=== PATIENT | female | born 1960 | race Caucasian/White ===

== ENCOUNTER 2018-05-30 14:50 | Inpatient (IN) | payer MEDICARE, BC, MEDICAID ==
[~2018-05-30] VITALS: Ht 162.6 cm; Wt 93.2 kg
[~2018-05-30 14:50] MED LIST: GABA600T2 PO; MORP30TA60 PO; NIA500ERT PO; OMEP20CA4 PO; PRED5TAB49 PO; TOPI200T PO; TOPI200T16 PO; VENL75TA4 PO; ZOLP10TA PO
[2018-05-30] MEDS ORDERED: oxyCODONE/APAP 5-325mg tablet PO ONE (15:35)
[2018-05-30] MEDS ORDERED: morphine 4 MG/ML inj SYRINge IM ONE (15:35)
[2018-05-30] MEDS ORDERED: normal saline 1000ML IV soln IVB ONE (16:25)
[2018-05-30] MEDS ORDERED: morphine 4 MG/ML inj SYRINge IV ONE (16:25)
[2018-05-30 17:00] LABS: BASOPHILS % (AUTO) 0.1 % (0-1); EOSINOPHILS # (AUTO) 0.2 X10'3 (0-0.9); EOSINOPHILS % (AUTO) 1.4 % (0-6); HEMATOCRIT 35.1 % (35.0-45.0); LYMPHOCYTES # (AUTO) 2.4 X10'3 (1.1-4.8); LYMPHOCYTES % (AUTO) 18.1 % (21-51); MEAN CORPUSCULAR HEMOGLOBIN 24.8 PG (27.0-31.0); MEAN CORPUSCULAR HGB CONC 31.5 % (33.0-36.5); MEAN CORPUSCULAR VOLUME 78.8 FL (78-98); MEAN PLATELET VOLUME 8.2 FL (7.4-10.4); MONOCYTES % (AUTO) 7.5 % (2-12); NEUTROPHILS # (AUTO) 9.6 X10'3 (1.8-7.7); NEUTROPHILS % (AUTO) 72.9 % (42-75); PLATELET COUNT 423 X10'3 (140-440); RED BLOOD COUNT 4.45 X10'6 (4.20-5.60); RED CELL DISTRIBUTION WIDTH 16.8 % (11.5-14.5); WHITE BLOOD COUNT 13.1 X10'3 (4.5-11.0)
[2018-05-30 17:15] LABS: ALANINE AMINOTRANSFERASE 21 U/L (12-78); ALBUMIN 2.8 G/DL (3.4-5.0); ALBUMIN/GLOBULIN RATIO 0.7 (1.1-1.5); ALKALINE PHOSPHATASE 119 IU/L (46-116); ANION GAP 6 (8-16); ASPARTATE AMINO TRANSFERASE 19 U/L (10-37); BILIRUBIN,TOTAL 0.2 MG/DL (0.1-1.0); BLOOD UREA NITROGEN 23 MG/DL (7-18); BUN/CREATININE RATIO 62.2 (6.6-38.0); CALCIUM 8.5 MG/DL (8.5-10.1); CHLORIDE 104 MMOL/L (99-107); CREATININE 0.37 MG/DL (0.40-0.90); GLUCOSE 92 MG/DL (70-104); SODIUM 139 MMOL/L (135-145); TOTAL CARBON DIOXIDE 28.7 MMOL/L (24-32); TOTAL PROTEIN 6.6 G/DL (6.4-8.2); eGFR > 90 ML/MIN
[2018-05-30] MEDS ORDERED: potassium Cl oral solution 20 MEQ/15 ML PO ONE (17:20)
[2018-05-30] MEDS ORDERED: potassium Cl 40MEQ/NS 500ml 500 ML IV PRN ×2 (17:45)
[2018-05-30] MEDS ORDERED: magnesium 1gm/100ml D5W IVPB 100 ML IV PRN (17:45)
[2018-05-30] MEDS ORDERED: HYDROmorphone 1 mg/ml syringe IV PRN (17:45)
[2018-05-30] MEDS ORDERED: magnesium 4gm in 100ml NS 100 ML IV PRN (17:45)
[2018-05-30] MEDS ORDERED: ipratropium/albuterol 3ml nebule NEB PRN (17:45)
[2018-05-30] MEDS ORDERED: potassium Cl 20 mEq SR tablet PO PRN (17:45)
[2018-05-30] MEDS ORDERED: ondansetron/PF 4mg/2ml inj IV PRN (17:45)
[2018-05-30] MEDS ORDERED: acetaminophen 325mg tablet PO PRN (17:45)
[2018-05-30] MEDS ORDERED: magnesium hydroxide 30ml (MOM) UD suspension PO PRN (17:45)
[2018-05-30] MEDS ORDERED: mag hydrox/Alum hydrox/simeth 30ml oral suspension PO PRN (17:45)
[2018-05-30] MEDS ORDERED: HYDR2TAB28 PO (17:54)
[2018-05-30] MEDS ORDERED: zolpidem 5mg tablet PO PRN ×2 (18:55→19:25)
[2018-05-30 19:32] LABS: CLARITY,URINE CLEAR (Clear); GLUCOSE, URINE NEGATIVE (Neg); KETONES,URINE TRACE mg/dl (Neg); LEUKOCYTE ESTERASE ,URINE NEGATIVE (Neg); OCCULT BLOOD,URINE NEGATIVE (Neg); PROTEIN,URINE TRACE mg/dl (Neg)
[2018-05-30 19:33] LABS: UA COLLECTION TYPE STRAIGHT CATH
[2018-05-30 19:40] LABS: COLOR,URINE DARK YELLOW (Yellow)
[2018-05-30 19:42] LABS: NITRITES, URINE NEGATIVE (Neg)
[2018-05-30 19:45] LABS: WBC,URINE NONE SEEN /HPF (0-4)
[2018-05-30 19:46] LABS: BACTERIA,URINE FEW /HPF (Neg); MUCUS STRANDS MANY /LPF (Neg); RBC,URINE 0-2 /HPF (0-2); SQUAMOUS EPITHELIAL CELL,UR NONE SEEN /LPF (FEW)
[2018-05-30 20:15] VITALS: BP 121/77
[2018-05-30] MEDS: morphine ER 30mg tablet PO SCH (20:51)
[2018-05-30] MEDS: gabapentin 300mg capsule PO SCH (20:51)
[2018-05-30] MEDS: niacin 500mg ER (Niaspan) tablet PO SCH (20:51)
[2018-05-30] MEDS: venlafaxine 37.5mg tablet PO SCH (20:52)
[2018-05-30] MEDS: topiramate 100mg tablet PO SCH (21:10)
[2018-05-30] MEDS: HYDROmorphone 1 mg/ml syringe IV PRN (21:11)
[2018-05-30 22:00] VITALS: BP 109/64
[2018-05-31 02:00] VITALS: BP 107/71
[2018-05-31] MEDS: HYDROmorphone 1 mg/ml syringe IV PRN ×5 (02:14→22:41)
[2018-05-31 05:57] LABS: BASOPHILS % (AUTO) 0.4 % (0-1); EOSINOPHILS # (AUTO) 0.3 X10'3 (0-0.9); EOSINOPHILS % (AUTO) 3.4 % (0-6); HEMATOCRIT 31.2 % (35.0-45.0); HEMOGLOBIN 9.7 g/dl (12.0-16.0); LYMPHOCYTES # (AUTO) 2.4 X10'3 (1.1-4.8); LYMPHOCYTES % (AUTO) 27.7 % (21-51); MEAN CORPUSCULAR HEMOGLOBIN 24.8 PG (27.0-31.0); MEAN CORPUSCULAR VOLUME 79.8 FL (78-98); MEAN PLATELET VOLUME 8.4 FL (7.4-10.4); MONOCYTES # (AUTO) 0.7 X10'3 (0-0.9); MONOCYTES % (AUTO) 7.8 % (2-12); NEUTROPHILS # (AUTO) 5.2 X10'3 (1.8-7.7); NEUTROPHILS % (AUTO) 60.7 % (42-75); PLATELET COUNT 381 X10'3 (140-440); RED BLOOD COUNT 3.91 X10'6 (4.20-5.60); RED CELL DISTRIBUTION WIDTH 17.1 % (11.5-14.5); WHITE BLOOD COUNT 8.6 X10'3 (4.5-11.0)
[2018-05-31 06:00] VITALS: BP 108/68
[2018-05-31 06:05] LABS: PROTHROMBIN TIME 10.3 SECONDS (9.0-12.0)
[2018-05-31 06:16] LABS: ALANINE AMINOTRANSFERASE 19 U/L (12-78); ALBUMIN 2.4 G/DL (3.4-5.0); ALBUMIN/GLOBULIN RATIO 0.7 (1.1-1.5); ALKALINE PHOSPHATASE 106 IU/L (46-116); ANION GAP 7 (8-16); ASPARTATE AMINO TRANSFERASE 19 U/L (10-37); BILIRUBIN,TOTAL 0.3 MG/DL (0.1-1.0); BLOOD UREA NITROGEN 15 MG/DL (7-18); BUN/CREATININE RATIO 71.4 (6.6-38.0); CALCIUM 8.2 MG/DL (8.5-10.1); CHLORIDE 105 MMOL/L (99-107); CREATININE 0.21 MG/DL (0.40-0.90); GLUCOSE 83 MG/DL (70-104); MAGNESIUM 2.1 MG/DL (1.5-2.4); POTASSIUM 3.3 MMOL/L (3.5-5.1); SODIUM 140 MMOL/L (135-145); TOTAL CARBON DIOXIDE 27.6 MMOL/L (24-32); TOTAL PROTEIN 5.9 G/DL (6.4-8.2); eGFR > 90 ML/MIN
[2018-05-31] MEDS: K and/or MAG REPLACEMENT MC SCH (08:00)
[2018-05-31] MEDS: pantoprazole 40mg Tablet.DR PO SCH (09:57)
[2018-05-31] MEDS: venlafaxine 37.5mg tablet PO SCH ×2 (09:57→20:42)
[2018-05-31] MEDS: gabapentin 300mg capsule PO SCH ×2 (09:57→20:42)
[2018-05-31] MEDS: niacin 500mg ER (Niaspan) tablet PO SCH ×2 (09:57→20:42)
[2018-05-31] MEDS: morphine ER 30mg tablet PO SCH ×2 (09:57→20:42)
[2018-05-31] MEDS: predniSONE 5mg tablet PO SCH (09:57)
[2018-05-31] MEDS: enoxaparin 40mg/0.4ml syringe SQ SCH (09:58)
[2018-05-31 10:00] VITALS: BP 90/54
[2018-05-31] MEDS: topiramate 100mg tablet PO SCH ×2 (10:07→20:42)
[2018-05-31] MEDS: potassium Cl 20 mEq SR tablet PO PRN ×2 (16:25→22:41)
[2018-05-31 19:00] VITALS: BP 102/55
[2018-05-31 22:00] VITALS: BP 89/57
[2018-05-31 22:24] VITALS: BP 97/61
[2018-06-01] MEDS: HYDROmorphone 1 mg/ml syringe IV PRN ×5 (04:07→23:26)
[2018-06-01 05:33] LABS: BASOPHILS % (AUTO) 0.4 % (0-1); EOSINOPHILS # (AUTO) 0.2 X10'3 (0-0.9); EOSINOPHILS % (AUTO) 2.8 % (0-6); HEMATOCRIT 30.3 % (35.0-45.0); HEMOGLOBIN 9.4 g/dl (12.0-16.0); LYMPHOCYTES # (AUTO) 2.6 X10'3 (1.1-4.8); LYMPHOCYTES % (AUTO) 34.5 % (21-51); MEAN CORPUSCULAR HEMOGLOBIN 24.8 PG (27.0-31.0); MEAN CORPUSCULAR HGB CONC 30.9 % (33.0-36.5); MEAN CORPUSCULAR VOLUME 80.4 FL (78-98); MEAN PLATELET VOLUME 8.3 FL (7.4-10.4); MONOCYTES # (AUTO) 0.7 X10'3 (0-0.9); MONOCYTES % (AUTO) 8.7 % (2-12); NEUTROPHILS # (AUTO) 4.1 X10'3 (1.8-7.7); NEUTROPHILS % (AUTO) 53.6 % (42-75); PLATELET COUNT 357 X10'3 (140-440); RED BLOOD COUNT 3.77 X10'6 (4.20-5.60); RED CELL DISTRIBUTION WIDTH 17.1 % (11.5-14.5); WHITE BLOOD COUNT 7.6 X10'3 (4.5-11.0)
[2018-06-01 06:00] VITALS: BP 130/76
[2018-06-01 06:01] LABS: ALANINE AMINOTRANSFERASE 17 U/L (12-78); ALBUMIN 2.3 G/DL (3.4-5.0); ALBUMIN/GLOBULIN RATIO 0.7 (1.1-1.5); ALKALINE PHOSPHATASE 106 IU/L (46-116); ANION GAP 4 (8-16); ASPARTATE AMINO TRANSFERASE 20 U/L (10-37); BILIRUBIN,TOTAL 0.1 MG/DL (0.1-1.0); BLOOD UREA NITROGEN 11 MG/DL (7-18); BUN/CREATININE RATIO 42.3 (6.6-38.0); CALCIUM 8.7 MG/DL (8.5-10.1); CHLORIDE 107 MMOL/L (99-107); CREATININE 0.26 MG/DL (0.40-0.90); GLUCOSE 96 MG/DL (70-104); MAGNESIUM 2.1 MG/DL (1.5-2.4); POTASSIUM 4.2 MMOL/L (3.5-5.1); SODIUM 142 MMOL/L (135-145); TOTAL CARBON DIOXIDE 30.8 MMOL/L (24-32); TOTAL PROTEIN 5.8 G/DL (6.4-8.2); eGFR > 90 ML/MIN
[2018-06-01] MEDS: K and/or MAG REPLACEMENT MC SCH (06:58)
[2018-06-01] MEDS: venlafaxine 37.5mg tablet PO SCH ×2 (07:25→19:22)
[2018-06-01] MEDS: pantoprazole 40mg Tablet.DR PO SCH (07:25)
[2018-06-01] MEDS: morphine ER 30mg tablet PO SCH ×2 (07:25→19:22)
[2018-06-01] MEDS: gabapentin 300mg capsule PO SCH ×2 (07:25→19:22)
[2018-06-01] MEDS: predniSONE 5mg tablet PO SCH (07:26)
[2018-06-01] MEDS: topiramate 100mg tablet PO SCH ×2 (07:26→19:22)
[2018-06-01] MEDS: niacin 500mg ER (Niaspan) tablet PO SCH ×2 (07:26→19:25)
[2018-06-01] MEDS: enoxaparin 40mg/0.4ml syringe SQ SCH (07:28)
[2018-06-01 10:00] VITALS: BP 108/71
[2018-06-01 18:00] VITALS: BP 103/63
[2018-06-01 22:00] VITALS: BP 107/77
[2018-06-02] MEDS: HYDROmorphone 1 mg/ml syringe IV PRN ×3 (04:01→12:15)
[2018-06-02 06:13] LABS: BASOPHILS % (AUTO) 0.5 % (0-1); EOSINOPHILS # (AUTO) 0.2 X10'3 (0-0.9); EOSINOPHILS % (AUTO) 3.1 % (0-6); HEMATOCRIT 29.2 % (35.0-45.0); LYMPHOCYTES # (AUTO) 2.5 X10'3 (1.1-4.8); LYMPHOCYTES % (AUTO) 31.5 % (21-51); MEAN CORPUSCULAR VOLUME 80.8 FL (78-98); MEAN PLATELET VOLUME 8.3 FL (7.4-10.4); MONOCYTES # (AUTO) 0.6 X10'3 (0-0.9); MONOCYTES % (AUTO) 7.2 % (2-12); NEUTROPHILS # (AUTO) 4.6 X10'3 (1.8-7.7); NEUTROPHILS % (AUTO) 57.7 % (42-75); PLATELET COUNT 367 X10'3 (140-440); RED BLOOD COUNT 3.61 X10'6 (4.20-5.60); RED CELL DISTRIBUTION WIDTH 17.1 % (11.5-14.5)
[2018-06-02 06:25] LABS: ALANINE AMINOTRANSFERASE 20 U/L (12-78); ALBUMIN 2.3 G/DL (3.4-5.0); ALBUMIN/GLOBULIN RATIO 0.7 (1.1-1.5); ALKALINE PHOSPHATASE 96 IU/L (46-116); ANION GAP 5 (8-16); ASPARTATE AMINO TRANSFERASE 16 U/L (10-37); BILIRUBIN,TOTAL 0.1 MG/DL (0.1-1.0); BLOOD UREA NITROGEN 11 MG/DL (7-18); BUN/CREATININE RATIO 28.9 (6.6-38.0); CALCIUM 8.1 MG/DL (8.5-10.1); CHLORIDE 108 MMOL/L (99-107); CREATININE 0.38 MG/DL (0.40-0.90); GLUCOSE 103 MG/DL (70-104); POTASSIUM 3.6 MMOL/L (3.5-5.1); SODIUM 141 MMOL/L (135-145); TOTAL CARBON DIOXIDE 28.5 MMOL/L (24-32); TOTAL PROTEIN 5.7 G/DL (6.4-8.2); eGFR > 90 ML/MIN
[2018-06-02 06:59] VITALS: BP 118/72
[2018-06-02] MEDS: gabapentin 300mg capsule PO SCH (07:58)
[2018-06-02] MEDS: niacin 500mg ER (Niaspan) tablet PO SCH (07:58)
[2018-06-02] MEDS: morphine ER 30mg tablet PO SCH (07:59)
[2018-06-02] MEDS: topiramate 100mg tablet PO SCH (07:59)
[2018-06-02] MEDS: pantoprazole 40mg Tablet.DR PO SCH (07:59)
[2018-06-02] MEDS: enoxaparin 40mg/0.4ml syringe SQ SCH (07:59)
[2018-06-02] MEDS: venlafaxine 37.5mg tablet PO SCH (07:59)
[2018-06-02] MEDS: predniSONE 5mg tablet PO SCH (07:59)
[2018-06-02] MEDS: K and/or MAG REPLACEMENT MC SCH (08:00)
[2018-06-02 11:06] VITALS: BP 132/70
== END 2018-06-02 14:00 | DRG 543 ==
LOC: ER 14:50 → ED HOLD 17:44 → ORTHO 4S 20:10
PROVIDERS: ADMIT Family Medicine; ATTEND Family Medicine
DX: M80.062A Age-related osteoporosis with current pathological fracture, left lower leg, initial encounter for fracture (principal); G71.0 Muscular dystrophy; E46 Unspecified protein-calorie malnutrition; E87.6 Hypokalemia; D64.9 Anemia, unspecified; D72.829 Elevated white blood cell count, unspecified; W05.0XXA Fall from non-moving wheelchair, initial encounter; E86.0 Dehydration; F32.9 Major depressive disorder, single episode, unspecified; K21.9 Gastro-esophageal reflux disease without esophagitis; G89.29 Other chronic pain; Z99.3 Dependence on wheelchair; Z79.52 Long term (current) use of systemic steroids; Z79.899 Other long term (current) drug therapy; Z87.891 Personal history of nicotine dependence; Z82.49 Family history of ischemic heart disease and other diseases of the circulatory system; Z83.3 Family history of diabetes mellitus; Z68.35 Body mass index [BMI] 35.0-35.9, adult; Y93.89 Activity, other specified; Y92.89 Other specified places as the place of occurrence of the external cause; Y99.8 Other external cause status
CPT/HCPCS: 36415; 73030; 73060; 73564; 73610; 80053; 81001; 83735; 85025; 85610; 87070; 93005; 94760; 96372; 97110; 97162; 97530; 99285; A4565; C1758; J1170; J1650; J2270; J7030; J7512

== ENCOUNTER 2019-01-27 09:17 | Day surgery (SDC) | payer MEDICARE, BC, MEDICAID ==
[2019-01-19 12:55] LABS: BASOPHILS # (AUTO) 0.1 X10'3 (0-0.2); BASOPHILS % (AUTO) 0.6 % (0-1); EOSINOPHILS % (AUTO) 0.4 % (0-6); LYMPHOCYTES % (AUTO) 22.2 % (21-51); MEAN CORPUSCULAR HEMOGLOBIN 25.5 PG (27.0-31.0); MEAN CORPUSCULAR HGB CONC 31.7 g/dL (33.0-36.5); MEAN CORPUSCULAR VOLUME 80.5 FL (78-98); MEAN PLATELET VOLUME 8.5 FL (7.4-10.4); MONOCYTES # (AUTO) 0.6 X10'3 (0-0.9); MONOCYTES % (AUTO) 6.6 % (2-12); NEUTROPHILS # (AUTO) 6.5 X10'3 (1.8-7.7); NEUTROPHILS % (AUTO) 70.2 % (42-75); PRE OP HEMATOCRIT 37.8 % (35.0-45.0); PRE OP PLATELET COUNT 311 X10'3 (140-440); RED BLOOD COUNT 4.69 X10'6 (4.20-5.60); RED CELL DISTRIBUTION WIDTH 17.2 % (11.5-14.5)
[2019-01-19 13:08] LABS: BLOOD UREA NITROGEN 13 MG/DL (7-18); CALCIUM 9.1 MG/DL (8.5-10.1); CHLORIDE 106 MMOL/L (99-107); CREATININE 0.26 MG/DL (0.40-0.90); PRE OP ANION GAP 8 (8-16); PRE OP GLUCOSE 100 MG/DL (70-104); PRE OP POTASSIUM 3.5 MMOL/L (3.4-5.1); PRE OP SODIUM 144 MMOL/L (135-145); TOTAL CARBON DIOXIDE 30.5 MMOL/L (24-32); eGFR > 90 ML/MIN
[2019-01-19 14:32] LABS: ALBUMIN/GLOBULIN RATIO 0.8 (1.1-1.5); PRE OP ALT 24 U/L (30-65); PRE OP AST 19 U/L (10-37); PRE OP BILIRUB, TOTAL 0.2 MG/DL (0.0-1.0)
[2019-01-19 14:34] LABS: ALKALINE PHOSPHATASE 64 IU/L (46-116)
[~2019-01-27] VITALS: Ht 162.6 cm; Wt 88.5 kg
[2019-01-27] VITALS (9 sets, daily range): BP systolic 114–133; BP diastolic 63–85
[~2019-01-27 09:17] MED LIST changes: +BUPIVAcaine/PF 2.5mg/ml (0.25%) 10ml vial ONE; +EZET10TA26 PO; +GABA600T13 PO; -GABA600T2 PO; +HYDR2TAB28 PO; +ceFAZolin 2gm in dextrose, iso 100 ML IV ONE; +famotidine 20mg tablet PO ONE; +ringers solution, lacted 1,000 ML IV SCH
[2019-01-27] MEDS ORDERED: hydrALAZINE 20mg/ml inj. IV PRN (12:45)
[2019-01-27] MEDS ORDERED: ringers solution, lacted 1,000 ML IV SCH (12:45)
[2019-01-27] MEDS ORDERED: ondansetron/PF 4mg/2ml inj IV PRN (12:45)
[2019-01-27] MEDS ORDERED: labetalol 20mg/4ml (5mg/ml) syringe IV PRN (12:45)
[2019-01-27] MEDS ORDERED: morphine 4 MG/ML inj SYRINge IV PRN ×2 (12:45)
[2019-01-27] MEDS ORDERED: fentaNYL/PF 50MCG/1 ML 2ML syringe IV PRN ×2 (12:45)
[2019-01-27] MEDS ORDERED: propofol 10mg/ml 20ml vial IV ONE (12:47)
--- NOTE | 2019-01-27 13:26 | NUR ---
Received from OR via , accompanied by Anesthesiologist JING and report given by Anesthesiolgist. AWAKE IN NO RESP DISTRESS SKIN WARM AND DRY HOB AND RUE ELEVATED, FINGERS WARM PINK GOOD CAP REFILL. DSG DI, NO CO PAIN.
--- NOTE | 2019-01-27 15:26 | NUR ---
AWAKE VS WNL NO CO PAIN DSG DI, FINGERS WARM PINK GOOD CAP REFILL, TOLERATES LIQUIDS AND CRACKERS, DISCH INSTR GIVEN TO PT AND UNDERSTOOD, HOME VIA [facility].
== END 2019-01-27 15:26 | disposition home or self-care (01) ==
LOC: PAS 09:17 → EDSTATUS 12:15 → PAS 15:26
PROVIDERS: ATTEND Orthopaedic Surgery Hand Surgery
DX: G56.01 Carpal tunnel syndrome, right upper limb (principal)
CPT/HCPCS: 29848; 36415; 80053; 82948; 85025; 85610; 85730; 93005; A6449; J0690; J2704; J3490; A7000; J7120

== ENCOUNTER 2019-04-17 12:43 | Emergency (ER) | payer MEDICARE, BC, MEDICAID ==
[~2019-04-17] VITALS: Ht 162.6 cm; Wt 83.2 kg
[~2019-04-17 12:43] MED LIST changes: -BUPIVAcaine/PF 2.5mg/ml (0.25%) 10ml vial ONE; -EZET10TA26 PO; +EZET10TA48 PO; -ceFAZolin 2gm in dextrose, iso 100 ML IV ONE; -famotidine 20mg tablet PO ONE; -ringers solution, lacted 1,000 ML IV SCH
[2019-04-17] MEDS ORDERED: ipratropium/albuterol 3ml nebule NEB ONE (13:25)
[2019-04-17 13:37] LABS: BASOPHILS # (AUTO) 0.1 X10'3 (0-0.2); BASOPHILS % (AUTO) 0.5 % (0-1); EOSINOPHILS % (AUTO) 0.1 % (0-6); HEMATOCRIT 39.6 % (35.0-45.0); HEMOGLOBIN 12.6 g/dl (12.0-16.0); LYMPHOCYTES # (AUTO) 2.2 X10'3 (1.1-4.8); LYMPHOCYTES % (AUTO) 19.6 % (21-51); MEAN CORPUSCULAR HEMOGLOBIN 26.2 PG (27.0-31.0); MEAN CORPUSCULAR HGB CONC 31.8 g/dL (33.0-36.5); MEAN CORPUSCULAR VOLUME 82.3 FL (78-98); MEAN PLATELET VOLUME 7.9 FL (7.4-10.4); MONOCYTES % (AUTO) 8.6 % (2-12); NEUTROPHILS # (AUTO) 7.9 X10'3 (1.8-7.7); NEUTROPHILS % (AUTO) 71.2 % (42-75); PLATELET COUNT 388 X10'3 (140-440); RED BLOOD COUNT 4.81 X10'6 (4.20-5.60); RED CELL DISTRIBUTION WIDTH 17.3 % (11.5-14.5); WHITE BLOOD COUNT 11.1 X10'3 (4.5-11.0)
[2019-04-17 13:50] LABS: ALANINE AMINOTRANSFERASE 34 U/L (12-78); ALBUMIN/GLOBULIN RATIO 0.7 (1.1-1.5); ALKALINE PHOSPHATASE 72 IU/L (46-116); ANION GAP 9 (8-16); ASPARTATE AMINO TRANSFERASE 17 U/L (10-37); BILIRUBIN,TOTAL 0.2 MG/DL (0.1-1.0); BLOOD UREA NITROGEN 20 MG/DL (7-18); BUN/CREATININE RATIO 66.7 (6.6-38.0); CALCIUM 8.5 MG/DL (8.5-10.1); CHLORIDE 104 MMOL/L (99-107); GLUCOSE 105 MG/DL (70-104); PARTIAL THROMBOPLASTIN TIME 29 SECONDS (22-32); POTASSIUM 3.1 MMOL/L (3.5-5.1); SODIUM 140 MMOL/L (135-145); TOTAL CARBON DIOXIDE 26.9 MMOL/L (24-32); TOTAL PROTEIN 7.4 G/DL (6.4-8.2); eGFR > 90 ML/MIN
[2019-04-17 15:18] VITALS: BP 139/89
--- NOTE | 2019-04-17 15:25 | NUR ---
PT TO CT
[2019-04-17] MEDS ORDERED: iohexol 350MG/ML 100ml bottle IV ONE (15:28)
== END 2019-04-17 17:07 | disposition home or self-care (01) ==
LOC: ER 12:43
DX: R06.02 Shortness of breath (principal); R05 Cough; Z98.890 Other specified postprocedural states; Z87.891 Personal history of nicotine dependence; Z79.899 Other long term (current) drug therapy
CPT/HCPCS: 36415; 71045; 71275; 80053; 83880; 84484; 85025; 85610; 85730; 93005; 94640; 99284; Q9967

== ENCOUNTER 2019-05-30 05:13 | Inpatient (IN) | payer MEDICARE, BC, MEDICAID ==
[2019-05-25 14:22] LABS: BASOPHILS % (AUTO) 0.3 % (0-1); EOSINOPHILS % (AUTO) 0.1 % (0-6); LYMPHOCYTES # (AUTO) 1.3 X10'3 (1.1-4.8); LYMPHOCYTES % (AUTO) 9.4 % (21-51); MEAN CORPUSCULAR HEMOGLOBIN 25.3 PG (27.0-31.0); MEAN CORPUSCULAR HGB CONC 31.2 g/dL (33.0-36.5); MEAN CORPUSCULAR VOLUME 81.2 FL (78-98); MEAN PLATELET VOLUME 7.9 FL (7.4-10.4); MONOCYTES # (AUTO) 0.9 X10'3 (0-0.9); MONOCYTES % (AUTO) 6.4 % (2-12); NEUTROPHILS # (AUTO) 11.5 X10'3 (1.8-7.7); NEUTROPHILS % (AUTO) 83.8 % (42-75); PRE OP HEMATOCRIT 41.3 % (35.0-45.0); PRE OP HEMOGLOBIN 12.9 g/dL (12.0-16.0); PRE OP PLATELET COUNT 366 X10'3 (140-440); RED BLOOD COUNT 5.09 X10'6 (4.20-5.60); RED CELL DISTRIBUTION WIDTH 16.8 % (11.5-14.5)
[2019-05-25 14:24] LABS: ALBUMIN 3.1 G/DL (3.4-5.0); ALBUMIN/GLOBULIN RATIO 0.7 (1.1-1.5); ALKALINE PHOSPHATASE 66 IU/L (46-116); BLOOD UREA NITROGEN 21 MG/DL (7-18); BUN/CREATININE RATIO 46.7 (6.6-38.0); CALCIUM 8.6 MG/DL (8.5-10.1); CHLORIDE 104 MMOL/L (99-107); CREATININE 0.45 MG/DL (0.40-0.90); PRE OP ALT 25 U/L (30-65); PRE OP ANION GAP 10 (8-16); PRE OP AST 19 U/L (10-37); PRE OP BILIRUB, TOTAL 0.3 MG/DL (0.0-1.0); PRE OP GLUCOSE 165 MG/DL (70-104); PRE OP POTASSIUM 3.7 MMOL/L (3.4-5.1); PRE OP SODIUM 140 MMOL/L (135-145); TOTAL CARBON DIOXIDE 26.5 MMOL/L (24-32); TOTAL PROTEIN 7.3 G/DL (6.4-8.2); eGFR > 90 ML/MIN
[2019-05-29 08:19] LABS: CLARITY,URINE CLOUDY (Clear); COLOR,URINE YELLOW (Yellow); GLUCOSE, URINE NEGATIVE (Neg); KETONES,URINE NEGATIVE (Neg); LEUKOCYTE ESTERASE ,URINE NEGATIVE (Neg); NITRITES, URINE NEGATIVE (Neg); OCCULT BLOOD,URINE NEGATIVE (Neg); PROTEIN,URINE NEGATIVE (Neg); UROBILINOGEN,URINE 0.2 E.U/dL (0.2-1.0)
[2019-05-29 08:22] LABS: UA COLLECTION TYPE CLN CATCH MIDSTREAM
[2019-05-29 08:35] LABS: AMORPHOUS PHOSPHATES 2+; BACTERIA,URINE FEW /HPF (Neg); RBC,URINE NONE SEEN /HPF (0-2); SQUAMOUS EPITHELIAL CELL,UR MODERATE /LPF (FEW); WBC,URINE 0-4 /HPF (0-4)
[2019-05-30] VITALS (19 sets, daily range): BP systolic 91–138; BP diastolic 49–82
[~2019-05-30] VITALS: Ht 162.6 cm; Wt 83.0 kg
[2019-05-30] MEDS ORDERED: ringers solution, lacted 1,000 ML IV SCH ×2 (05:30→08:04)
[2019-05-30] MEDS ORDERED: famotidine 20mg tablet PO ONE (05:30)
[2019-05-30] MEDS ORDERED: cefazolin/dext.iso 2gm/100ml 100 ML IV ONE (05:30)
[2019-05-30] MEDS ORDERED: BUPIVAcaine/PF 2.5 mg/ml (0.25%) 30ml vial ONE (06:31)
[2019-05-30] MEDS ORDERED: LIDOcaine 1% (10mg/ml) 2ml vial ONE (06:32)
[2019-05-30] MEDS ORDERED: sevoflurane 250ml liquid IH ONE (07:09)
[2019-05-30] MEDS ORDERED: fentaNYL/PF 50MCG/1 ML 2ML syringe ONE (07:11)
[2019-05-30] MEDS ORDERED: midazolam 2 mg/2 ml injection ONE (07:11)
[2019-05-30] MEDS ORDERED: LIDOcaine 2% (20mg/ml) 5ml vial ONE ×2 (07:30)
[2019-05-30] MEDS ORDERED: propofol inj 20 ML IV ONE ×2 (07:30→07:36)
[2019-05-30] MEDS ORDERED: phenylephrine 10mg/ml inj. ONE (07:35)
[2019-05-30] MEDS ORDERED: ePHEDrine 50MG/ML INJ. ONE ×2 (07:36→07:38)
[2019-05-30] MEDS ORDERED: dexamethasone sod phosphate 4mg/ml inj. ONE (07:36)
[2019-05-30] MEDS ORDERED: ondansetron/PF 4mg/2ml inj ONE (07:36)
[2019-05-30] MEDS ORDERED: ondansetron/PF 4mg/2ml inj IV PRN ×2 (08:05→09:45)
[2019-05-30] MEDS ORDERED: fentaNYL/PF 50MCG/1 ML 2ML syringe IV PRN ×2 (08:05)
[2019-05-30] MEDS ORDERED: morphine 4 MG/ML inj SYRINge IV PRN (08:05)
[2019-05-30] MEDS ORDERED: labetalol 20mg/4ml (5mg/ml) syringe IV PRN (08:05)
[2019-05-30] MEDS ORDERED: hydrALAZINE 20mg/ml inj. IV PRN (08:05)
[2019-05-30] MEDS ORDERED: ROPIVAcaine 0.5% (5mg/ml) 30ml vial ONE (09:05)
[2019-05-30] MEDS ORDERED: flumazenil 0.1 mg/ml inj. IV ONE (09:19)
--- NOTE | 2019-05-30 09:33 | NUR ---
Received from OR via BED, accompanied by Anesthesiologist DR ROWLAND and report given by Anesthesiologist. PT VERY DROWSY, NO S/S OF DISTRESS/DISCOMFORT, RIGHT SHOULDER W/ISLAND DRSG COVERING INCISION CDI, W/ICE PACK AND SHOULDER SLING IN PLACE. Addendum: 05/30/19 at 0907 by Polina Escobar RN Amended: Links added.
[2019-05-30] MEDS: potassium cl 20mEq in 1/2 NS 1,000 ML IV SCH ×2 (09:42→16:35)
[2019-05-30] MEDS ORDERED: bisacodyl 10mg suppository rectal RC PRN (09:45)
[2019-05-30] MEDS ORDERED: magnesium hydroxide 30ml (MOM) UD suspension PO PRN (09:45)
[2019-05-30] MEDS ORDERED: acetaminophen 325mg tablet PO PRN (09:45)
[2019-05-30] MEDS ORDERED: oxyCODONE IR 5mg (immed. release) tablet PO PRN (09:45)
[2019-05-30] MEDS ORDERED: diphenhydrAMINE 25mg capsule PO PRN ×2 (09:45)
[2019-05-30] MEDS ORDERED: zolpidem 5mg tablet PO PRN (09:45)
[2019-05-30] MEDS ORDERED: HYDROmorphone inj. 0.5 MG/0.5 ML DISP.SYRIN IV PRN (09:45)
[2019-05-30] MEDS: morphine 4 MG/ML inj SYRINge IV PRN ×2 (09:57→10:12)
--- NOTE | 2019-05-30 11:03 | NUR ---
Report called to receiving nurse. Transferred via BED, WHEELCHAIR AND 2 BELONGINGS BAGS SENT TO ROOM 4021A, RECEIVING RN AT BEDSIDE TO RECEIVE PT, BLL, CALL LIGHT GIVEN, SIDE RAILS UP X 2. Special Issues communicated to receiving nurse. YES. Addendum: 05/30/19 at 1116 by Polina Escobar RN Amended: Links added.
[2019-05-30] MEDS: acetaminophen 325mg tablet PO SCH ×2 (14:00→20:00)
[2019-05-30] MEDS: ceFAZolin 1GM/D5W- ADD-VANTAGE 50 ML IV SCH (16:26)
[2019-05-30] MEDS: HYDROmorphone 2mg tablet PO PRN (16:27)
--- NOTE | 2019-05-30 17:51 | NUR ---
I have reviewed and agree with all interventions, assessments performed and documented by Karen RAE.
--- NOTE | 2019-05-30 18:16 | NUR ---
Problems reprioritized. Patient report given, questions answered & plan of care reviewed with Deidre RAE.
--- NOTE | 2019-05-30 18:27 | NUR ---
Problems reprioritized. Patient report given, questions answered & plan of care reviewed with Deidre RAE.
[2019-05-30] MEDS ORDERED: vancomycin/NS 1 GM ADD-VANTAGE 250 ML IV SCH (20:00)
[2019-05-30] MEDS: sennosides 8.6mg tablet PO SCH (20:49)
[2019-05-30] MEDS: topiramate 100mg tablet PO SCH (20:50)
[2019-05-30] MEDS: gabapentin 300mg capsule PO SCH (20:51)
[2019-05-30] MEDS: niacin 500mg ER (Niaspan) tablet PO SCH (20:52)
[2019-05-30] MEDS: venlafaxine 37.5mg tablet PO SCH (20:52)
[2019-05-30] MEDS: morphine ER 30mg tablet PO SCH (20:52)
[2019-05-30] MEDS: oxyCODONE IR 5mg (immed. release) tablet PO PRN (23:39)
[2019-05-31] VITALS (7 sets, daily range): BP systolic 104–153; BP diastolic 59–78
[2019-05-31] MEDS: ceFAZolin 1GM/D5W- ADD-VANTAGE 50 ML IV SCH (00:11)
[2019-05-31] MEDS: acetaminophen 325mg tablet PO SCH ×4 (00:12→19:49)
[2019-05-31] MEDS: oxyCODONE IR 5mg (immed. release) tablet PO PRN ×3 (03:25→23:23)
[2019-05-31] MEDS: potassium cl 20mEq in 1/2 NS 1,000 ML IV SCH ×3 (03:27→15:10)
[2019-05-31] MEDS: HYDROmorphone 1 mg/ml syringe IV PRN ×4 (05:17→19:48)
[2019-05-31 06:18] LABS: BASOPHILS % (AUTO) 0.3 % (0-1); EOSINOPHILS % (AUTO) 0.1 % (0-6); HEMATOCRIT 33.5 % (35.0-45.0); HEMOGLOBIN 10.2 g/dl (12.0-16.0); LYMPHOCYTES # (AUTO) 2.5 X10'3 (1.1-4.8); LYMPHOCYTES % (AUTO) 16.1 % (21-51); MEAN CORPUSCULAR HEMOGLOBIN 25.6 PG (27.0-31.0); MEAN CORPUSCULAR HGB CONC 30.5 g/dL (33.0-36.5); MEAN CORPUSCULAR VOLUME 83.8 FL (78-98); MEAN PLATELET VOLUME 8.4 FL (7.4-10.4); MONOCYTES # (AUTO) 1.2 X10'3 (0-0.9); MONOCYTES % (AUTO) 7.6 % (2-12); NEUTROPHILS # (AUTO) 11.7 X10'3 (1.8-7.7); NEUTROPHILS % (AUTO) 75.9 % (42-75); PLATELET COUNT 212 X10'3 (140-440); RED BLOOD COUNT 3.99 X10'6 (4.20-5.60); RED CELL DISTRIBUTION WIDTH 16.5 % (11.5-14.5); WHITE BLOOD COUNT 15.4 X10'3 (4.5-11.0)
[2019-05-31 06:29] LABS: ANION GAP 7 (8-16); CHLORIDE 108 MMOL/L (99-107); POTASSIUM 3.9 MMOL/L (3.5-5.1); SODIUM 142 MMOL/L (135-145); TOTAL CARBON DIOXIDE 26.8 MMOL/L (24-32)
--- NOTE | 2019-05-31 06:42 | NUR ---
Problems reprioritized. Patient report given, questions answered & plan of care reviewed with BUTCH WHITE.
[2019-05-31] MEDS: topiramate 100mg tablet PO SCH ×2 (07:24→20:43)
[2019-05-31] MEDS: gabapentin 300mg capsule PO SCH ×2 (07:24→20:43)
[2019-05-31] MEDS: venlafaxine 37.5mg tablet PO SCH ×2 (07:25→19:48)
[2019-05-31] MEDS: predniSONE 5mg tablet PO SCH (07:25)
[2019-05-31] MEDS: ezetimibe 10mg tablet PO SCH (07:25)
[2019-05-31] MEDS: morphine ER 30mg tablet PO SCH ×2 (07:25→19:48)
[2019-05-31] MEDS: niacin 500mg ER (Niaspan) tablet PO SCH ×2 (07:25→19:48)
[2019-05-31] MEDS: pantoprazole 40mg Tablet.DR PO SCH (07:26)
[2019-05-31] MEDS: aspirin 325mg tablet PO SCH (08:46)
--- NOTE | 2019-05-31 09:48 | NUR ---
PAIN MEDICATION GIVEN PER ORDER, PATIENT UPDATED ON WHEN SHE CAN HAVE MEDS AGAIN
--- NOTE | 2019-05-31 10:19 | NUR ---
Joint consult: Pt s/p R clavicle fx repair. PO 75-100% regular diet meeting healing needs. LBM 05/28. A1C <7. No nutrition concerns at this time. Will continue to monitor. Addendum: 05/31/19 at [address] Amended: Links added.
--- NOTE | 2019-05-31 18:25 | NUR ---
Problems reprioritized. Patient report given, questions answered & plan of care reviewed with Christine RAE.
--- NOTE | 2019-05-31 18:26 | NUR ---
Problems reprioritized. Patient report given, questions answered & plan of care reviewed with Christine Ledezma.
[2019-05-31] MEDS: celeCOXIB 100mg capsule PO SCH (19:48)
[2019-05-31] MEDS: sennosides 8.6mg tablet PO SCH (20:43)
[2019-06-01] MEDS: HYDROmorphone 1 mg/ml syringe IV PRN ×4 (00:44→13:07)
[2019-06-01] MEDS: acetaminophen 325mg tablet PO SCH ×2 (02:00→08:00)
[2019-06-01] MEDS: oxyCODONE IR 5mg (immed. release) tablet PO PRN ×4 (04:22→21:46)
[2019-06-01 06:00] VITALS: BP 94/55
--- NOTE | 2019-06-01 06:24 | NUR ---
Report given to Priscilla RAE.
[2019-06-01 06:48] LABS: BASOPHILS # (AUTO) 0.1 X10'3 (0-0.2); BASOPHILS % (AUTO) 0.5 % (0-1); EOSINOPHILS # (AUTO) 0.1 X10'3 (0-0.9); HEMATOCRIT 31.4 % (35.0-45.0); HEMOGLOBIN 9.9 g/dl (12.0-16.0); LYMPHOCYTES # (AUTO) 2.7 X10'3 (1.1-4.8); LYMPHOCYTES % (AUTO) 25.3 % (21-51); MEAN CORPUSCULAR HEMOGLOBIN 25.9 PG (27.0-31.0); MEAN CORPUSCULAR HGB CONC 31.6 g/dL (33.0-36.5); MEAN CORPUSCULAR VOLUME 81.9 FL (78-98); MEAN PLATELET VOLUME 8.1 FL (7.4-10.4); MONOCYTES % (AUTO) 9.6 % (2-12); NEUTROPHILS # (AUTO) 6.8 X10'3 (1.8-7.7); NEUTROPHILS % (AUTO) 63.6 % (42-75); PLATELET COUNT 245 X10'3 (140-440); RED BLOOD COUNT 3.83 X10'6 (4.20-5.60); RED CELL DISTRIBUTION WIDTH 16.7 % (11.5-14.5); WHITE BLOOD COUNT 10.8 X10'3 (4.5-11.0)
[2019-06-01] MEDS: niacin 500mg ER (Niaspan) tablet PO SCH ×2 (08:30→20:09)
[2019-06-01] MEDS: gabapentin 300mg capsule PO SCH ×2 (08:30→20:09)
[2019-06-01] MEDS: celeCOXIB 100mg capsule PO SCH ×2 (08:30→20:07)
[2019-06-01] MEDS: pantoprazole 40mg Tablet.DR PO SCH (08:30)
[2019-06-01] MEDS: predniSONE 5mg tablet PO SCH (08:30)
[2019-06-01] MEDS: topiramate 100mg tablet PO SCH ×2 (08:30→20:09)
[2019-06-01] MEDS: venlafaxine 37.5mg tablet PO SCH ×2 (08:30→20:07)
[2019-06-01] MEDS: morphine ER 30mg tablet PO SCH ×2 (08:30→20:06)
[2019-06-01] MEDS: ezetimibe 10mg tablet PO SCH (08:31)
[2019-06-01] MEDS: aspirin 325mg tablet PO SCH (08:31)
[2019-06-01] MEDS ORDERED: acetaminophen 325mg tablet PO PRN (09:45)
[2019-06-01 10:00] VITALS: BP 91/58
--- NOTE | 2019-06-01 13:08 | NUR ---
partial dose given dilaudid- iv infiltrated
[2019-06-01] MEDS: HYDROmorphone 2mg tablet PO PRN (13:10)
--- NOTE | 2019-06-01 19:00 | NUR ---
Patient in room ORTHO 4021. I have received report from Priscilla Sumner RN and had the opportunity to ask questions and assume patient care.
[2019-06-01] MEDS: sennosides 8.6mg tablet PO SCH (20:09)
[2019-06-02] MEDS: HYDROmorphone 2mg tablet PO PRN (03:55)
[2019-06-02 06:00] VITALS: BP 105/59
[2019-06-02 06:13] LABS: BASOPHILS # (AUTO) 0.1 X10'3 (0-0.2); BASOPHILS % (AUTO) 0.9 % (0-1); EOSINOPHILS # (AUTO) 0.1 X10'3 (0-0.9); EOSINOPHILS % (AUTO) 1.7 % (0-6); HEMATOCRIT 32.9 % (35.0-45.0); HEMOGLOBIN 10.3 g/dl (12.0-16.0); LYMPHOCYTES # (AUTO) 2.6 X10'3 (1.1-4.8); MEAN CORPUSCULAR HEMOGLOBIN 25.8 PG (27.0-31.0); MEAN CORPUSCULAR HGB CONC 31.5 g/dL (33.0-36.5); MEAN PLATELET VOLUME 8.2 FL (7.4-10.4); MONOCYTES # (AUTO) 0.8 X10'3 (0-0.9); MONOCYTES % (AUTO) 8.7 % (2-12); NEUTROPHILS # (AUTO) 5.3 X10'3 (1.8-7.7); NEUTROPHILS % (AUTO) 59.7 % (42-75); PLATELET COUNT 265 X10'3 (140-440); RED CELL DISTRIBUTION WIDTH 17.1 % (11.5-14.5); WHITE BLOOD COUNT 8.8 X10'3 (4.5-11.0)
--- NOTE | 2019-06-02 06:32 | NUR ---
Problems reprioritized. Patient report given, questions answered & plan of care reviewed with Priscilla RAE.
[2019-06-02] MEDS: pantoprazole 40mg Tablet.DR PO SCH (07:40)
[2019-06-02] MEDS: venlafaxine 37.5mg tablet PO SCH (07:41)
[2019-06-02] MEDS: gabapentin 300mg capsule PO SCH (07:41)
[2019-06-02] MEDS: celeCOXIB 100mg capsule PO SCH (07:41)
[2019-06-02] MEDS: morphine ER 30mg tablet PO SCH (07:41)
[2019-06-02] MEDS: topiramate 100mg tablet PO SCH (07:42)
[2019-06-02] MEDS: aspirin 325mg tablet PO SCH (07:42)
[2019-06-02] MEDS: ezetimibe 10mg tablet PO SCH (07:42)
[2019-06-02] MEDS: predniSONE 5mg tablet PO SCH (07:42)
[2019-06-02] MEDS: niacin 500mg ER (Niaspan) tablet PO SCH (07:42)
[2019-06-02] MEDS: oxyCODONE IR 5mg (immed. release) tablet PO PRN ×2 (07:43→11:45)
[2019-06-02 10:00] VITALS: BP 113/75
[2019-06-02] MEDS ORDERED: HYDROmorphone 2mg tablet PO ONE (12:50)
== END 2019-06-02 13:00 | DRG 516 ==
LOC: PAS 05:13 → ORTHO 4S 09:45 → OBSVTOIN 09:45
PROVIDERS: ADMIT Orthopaedic Surgery; ATTEND Orthopaedic Surgery
PROC: 3E0T3BZ Introduction of Anesthetic Agent into Peripheral Nerves and Plexi, Percutaneous Approach (ICD-10-PCS; 2019-05-30)
PROC: 0PS904Z Reposition Right Clavicle with Internal Fixation Device, Open Approach (ICD-10-PCS; principal; 2019-05-30 07:09)
DX: S42.031A Displaced fracture of lateral end of right clavicle, initial encounter for closed fracture (principal); D62 Acute posthemorrhagic anemia; S43.121A Dislocation of right acromioclavicular joint, 100%-200% displacement, initial encounter; G71.00 Muscular dystrophy, unspecified; F32.9 Major depressive disorder, single episode, unspecified; K21.9 Gastro-esophageal reflux disease without esophagitis; G89.29 Other chronic pain; W05.0XXA Fall from non-moving wheelchair, initial encounter; Y93.89 Activity, other specified; Z99.3 Dependence on wheelchair; Y92.89 Other specified places as the place of occurrence of the external cause; Y99.8 Other external cause status; Z79.899 Other long term (current) drug therapy
CPT/HCPCS: 36415; 76000; 80051; 80053; 81001; 82948; 83036; 85025; 97161; 97530; A4215; A4565; A4618; A6449; A7000; C1713; G0378; J0690; J1100; J1170; J2001; J2250; J2270; J2370; J2405; J2704; J2795; J3010; J3370; J3480; J3490; J7120; J7512

== ENCOUNTER 2019-06-16 02:08 | Emergency (ER) | payer MEDICARE, BC, MEDICAID ==
[~2019-06-16] VITALS: Ht 162.6 cm; Wt 8.3 kg
[2019-06-16] MEDS ORDERED: normal saline 1000ML IV soln IV ONE (02:25)
[2019-06-16 02:59] LABS: MONOCYTES # (AUTO) 1.2 X10'3 (0-0.9)
[2019-06-16 03:15] LABS: ALANINE AMINOTRANSFERASE 46 U/L (12-78); ALBUMIN 3.1 G/DL (3.4-5.0); ALBUMIN/GLOBULIN RATIO 0.7 (1.1-1.5); ALKALINE PHOSPHATASE 141 IU/L (46-116); ANION GAP 10 (8-16); ASPARTATE AMINO TRANSFERASE 40 U/L (10-37); BILIRUBIN,TOTAL 0.4 MG/DL (0.1-1.0); BLOOD UREA NITROGEN 28 MG/DL (7-18); CHLORIDE 100 MMOL/L (99-107); GLUCOSE 186 MG/DL (70-104); POTASSIUM 3.3 MMOL/L (3.5-5.1); SODIUM 139 MMOL/L (135-145); TOTAL CARBON DIOXIDE 29.4 MMOL/L (24-32); TOTAL PROTEIN 7.5 G/DL (6.4-8.2); eGFR > 90 ML/MIN
[2019-06-16 03:21] LABS: BASOPHILS % (AUTO) 0.3 % (0-1); EOSINOPHILS % (AUTO) 0.1 % (0-6); HEMOGLOBIN 13.8 g/dl (12.0-16.0); LYMPHOCYTES # (AUTO) 1.5 X10'3 (1.1-4.8); LYMPHOCYTES % (AUTO) 9.7 % (21-51); MEAN CORPUSCULAR HEMOGLOBIN 25.4 PG (27.0-31.0); MEAN CORPUSCULAR HGB CONC 30.6 g/dL (33.0-36.5); MEAN CORPUSCULAR VOLUME 83.1 FL (78-98); MEAN PLATELET VOLUME 8.9 FL (7.4-10.4); MONOCYTES % (AUTO) 7.9 % (2-12); NEUTROPHILS # (AUTO) 12.9 X10'3 (1.8-7.7); PLATELET COUNT 389 X10'3 (140-440); RED BLOOD COUNT 5.41 X10'6 (4.20-5.60); RED CELL DISTRIBUTION WIDTH 17.1 % (11.5-14.5); WHITE BLOOD COUNT 15.7 X10'3 (4.5-11.0)
[2019-06-16 03:39] LABS: PARTIAL THROMBOPLASTIN TIME 28 SECONDS (22-32)
--- NOTE | 2019-06-16 03:59 | NUR ---
PT IS GETTING 2L NS BOLUS - IN ANTICIPATION OF THE NEED FOR PT TO URINATE I DISCUSSED WITH HER WHO SHE NORMALLY VOIDS. PT STATES SHE HAS TO USE A BED PAIN SECONDARY TO HER MUSCULAR DYSTROPHY. OFFERED PT THE CHOICE OF A BED LANTIGUA OR A WICK CATH. SHE WOULD LIKE TO USE THE WICK CATH. WHILE POSITIONING THE CATH IT WAS NOTED THAT PT HAD A LARGE BM, NON-FORMED. NO OBSERVABLE BLOOD NOTED. PT CLEANED AND WICK CATH PLACED.
[2019-06-16] MEDS ORDERED: LUBI24CA5 PO (04:43)
[2019-06-16] MEDS ORDERED: ASPI-1264 PO (04:48)
[2019-06-16] MEDS ORDERED: mineral oil 133ml enema RC PRN (05:20)
--- NOTE | 2019-06-16 05:30 | NUR ---
ATTEMPTED TP GIVE A SOAP KINJAL ENEMA TO GRAVITY WITHOUT SUCCESS NOTIFIED DR GARCIA. ABLE TO GIVE A MINERAL FLEETS ENEMA AND INSTRUCTED PATIENT TO NOTIFY US ONCE SHE HAS A BM. DR GARCIA TO THE BEDSIDE UPDATED POC AND INFORMED PT SHE WAS FULL OF STOOL AND GAS AND WOULD BE FEELING BETTER ONCE THE STOOL STARTS TO COME OUT
--- NOTE | 2019-06-16 05:42 | NUR ---
PT CALLED US TO THE ROOM FOR BED CHANGEAND EMESIS BAG. PT LIKES TO HAVE " CLOSE TO HER , JUST IN CASE" PT STSTED SHE 'MIGHT HAVE HAD BM .UPON ASSESSING , NO STOOL WAS NOTED ONLY GAS AT THIS TIME ENCOURAGED PT TO KEEP TRYING TO HAVE BM
[2019-06-16 05:53] VITALS: BP 98/61
--- NOTE | 2019-06-16 06:13 | NUR ---
CONTACTED PHU AT [facility] TO START AND ARRNAGE TRANSPORTATION BACK TO FACILITY. [facility] REPORTS THEY USE "[facility] " FOR ITS RESIDENCES.
--- NOTE | 2019-06-16 06:36 | NUR ---
Pt currently resting with eyes closed, pt awaiting transport, Desi GARCIA [id number]
--- NOTE | 2019-06-16 07:10 | NUR ---
Pt had BM, approx 300ml in amount of liquid and soft BM. Pt skin cleansed and linen changed.
--- NOTE | 2019-06-16 08:22 | NUR ---
Pt placed in adult disposable brief for transport, pt became nauseated with repositioning, received V/O for Zofran 4mg IV x [address] Greenfield.
[2019-06-16] MEDS ORDERED: ondansetron/PF 4mg/2ml inj IV ONE (08:25)
== END 2019-06-16 08:50 | disposition home or self-care (01) ==
LOC: ER 02:09
DX: K59.00 Constipation, unspecified (principal); R11.2 Nausea with vomiting, unspecified; G35 Multiple sclerosis; Z98.890 Other specified postprocedural states; Z79.82 Long term (current) use of aspirin; Z79.899 Other long term (current) drug therapy
CPT/HCPCS: 36415; 74176; 80053; 83605; 83735; 84145; 85025; 85610; 85730; 87040; 93005; 96361; 96374; 99284; J2405; J7030

== ENCOUNTER 2019-10-13 05:14 | Day surgery (SDC) | payer MEDICARE, BC, MEDICAID ==
[2019-10-09 12:26] LABS: BASOPHILS # (AUTO) 0.1 X10'3 (0-0.2); BASOPHILS % (AUTO) 0.6 % (0-1); EOSINOPHILS # (AUTO) 0.1 X10'3 (0-0.9); EOSINOPHILS % (AUTO) 0.9 % (0-6); LYMPHOCYTES # (AUTO) 1.4 X10'3 (1.1-4.8); LYMPHOCYTES % (AUTO) 16.1 % (21-51); MEAN CORPUSCULAR HEMOGLOBIN 26.4 PG (27.0-31.0); MEAN CORPUSCULAR HGB CONC 31.1 g/dL (33.0-36.5); MEAN CORPUSCULAR VOLUME 84.8 FL (78-98); MEAN PLATELET VOLUME 8.5 FL (7.4-10.4); MONOCYTES # (AUTO) 0.7 X10'3 (0-0.9); MONOCYTES % (AUTO) 8.7 % (2-12); NEUTROPHILS # (AUTO) 6.3 X10'3 (1.8-7.7); NEUTROPHILS % (AUTO) 73.7 % (42-75); PRE OP HEMATOCRIT 35.9 % (35.0-45.0); PRE OP HEMOGLOBIN 11.2 g/dL (12.0-16.0); PRE OP PLATELET COUNT 272 X10'3 (140-440); RED BLOOD COUNT 4.24 X10'6 (4.20-5.60); RED CELL DISTRIBUTION WIDTH 16.3 % (11.5-14.5)
[2019-10-09 12:38] LABS: PRE OP INR 0.9 INR; PRE OP PROTIME 9.7 SECONDS (9.0-12.0)
[2019-10-09 12:48] LABS: ALBUMIN 2.9 G/DL (3.4-5.0); ALBUMIN/GLOBULIN RATIO 0.8 (1.1-1.5); ALKALINE PHOSPHATASE 61 IU/L (46-116); BLOOD UREA NITROGEN 16 MG/DL (7-18); BUN/CREATININE RATIO 69.6 (6.6-38.0); CALCIUM 8.4 MG/DL (8.5-10.1); CHLORIDE 104 MMOL/L (99-107); CREATININE 0.23 MG/DL (0.40-0.90); PRE OP ALT 24 U/L (30-65); PRE OP ANION GAP 4 (8-16); PRE OP AST 22 U/L (10-37); PRE OP BILIRUB, TOTAL 0.1 MG/DL (0.0-1.0); PRE OP GLUCOSE 81 MG/DL (70-104); PRE OP POTASSIUM 3.9 MMOL/L (3.4-5.1); PRE OP SODIUM 140 MMOL/L (135-145); TOTAL CARBON DIOXIDE 31.9 MMOL/L (24-32); TOTAL PROTEIN 6.6 G/DL (6.4-8.2); eGFR > 90 ML/MIN
[~2019-10-13] VITALS: Ht 162.6 cm; Wt 79.4 kg
[2019-10-13] VITALS (8 sets, daily range): BP systolic 108–131; BP diastolic 66–84
[~2019-10-13 05:14] MED LIST changes: +ASPI-1264 PO; +LUBI24CA5 PO; +ringers solution, lacted 1,000 ML IV SCH
[2019-10-13] MEDS ORDERED: famotidine 10mg tablet PO ONE (05:30)
[2019-10-13] MEDS ORDERED: cefazolin/dext.iso 2gm/100ml 100 ML IV ONE (06:00)
[2019-10-13] MEDS ORDERED: BUPIVAcaine/PF 2.5mg/ml (0.25%) 10ml vial ONE (06:41)
[2019-10-13] MEDS ORDERED: LIDOcaine 0.5% (5mg/ml) 50ml vial ONE (07:14)
[2019-10-13] MEDS ORDERED: fentaNYL/PF 50MCG/1 ML 2ML syringe ONE (07:16)
[2019-10-13] MEDS ORDERED: midazolam 2 mg/2 ml injection ONE (07:16)
--- NOTE | 2019-10-13 07:41 | NUR ---
Received from OR via JAS , accompanied by Anesthesiologist SOLOMON and report given by Anesthesiolgist. PATIENT WITH 20G PIV IN RIGHT UE RUNNING LR AT 100. LEFT UE WITH WRIST DRESSING THAT IS CDI. VSS. JOLIE STILL FOR COMFORT. Addendum: 10/13/19 at 0753 by Herbert Ferreira RN, RN Amended: Links added.
--- NOTE | 2019-10-13 08:51 | NUR ---
ALL DC CRITERIA HAS BEEN MET. IV TAKEN OUT WITHOUT COMPLICATIONS. ALL INSTRUCTIONS COVERED AND ALL QUESTIONS ANSWERED. DRESSINGS CDI. OUT VIA WHEELCHAIR TO PERSONAL VEHICLE WHERE PATIENT WAS SECURED IN AND DRIVEN HOME BY FAMILY. Addendum: 10/13/19 at 0914 by Herbert Ferreira RN, RN Amended: Links added.
== END 2019-10-13 08:41 | disposition home or self-care (01) ==
LOC: PAS 05:14
PROVIDERS: ATTEND Orthopaedic Surgery Hand Surgery
DX: G56.03 Carpal tunnel syndrome, bilateral upper limbs (principal); Z79.891 Long term (current) use of opiate analgesic; Z79.01 Long term (current) use of anticoagulants; Z79.899 Other long term (current) drug therapy; Z87.891 Personal history of nicotine dependence; Z83.3 Family history of diabetes mellitus; Z80.8 Family history of malignant neoplasm of other organs or systems; Z98.890 Other specified postprocedural states
CPT/HCPCS: 29848; 36415; 80053; 82948; 85025; 85610; 85730; J2001; J2250; J3010; J3490; A4215; A7000; J7120

== ENCOUNTER 2020-07-15 14:10 | Outpatient (CLI) | payer MEDICARE, BC, MEDICAID ==
[~2020-07-15] VITALS: Ht 162.6 cm; Wt 81.2 kg
[~2020-07-15 14:10] MED LIST changes: -ASPI-1264 PO; -ringers solution, lacted 1,000 ML IV SCH
[2020-07-15 15:17] LABS: BASOPHILS # (AUTO) 0.1 X10'3 (0-0.2); EOSINOPHILS # (AUTO) 0.1 X10'3 (0-0.9); EOSINOPHILS % (AUTO) 0.7 % (0-6); LYMPHOCYTES # (AUTO) 2.8 X10'3 (1.1-4.8); LYMPHOCYTES % (AUTO) 33.2 % (21-51); MEAN CORPUSCULAR HEMOGLOBIN 26.2 PG (27.0-31.0); MEAN CORPUSCULAR HGB CONC 32.1 g/dL (33.0-36.5); MEAN CORPUSCULAR VOLUME 81.8 FL (78-98); MEAN PLATELET VOLUME 8.1 FL (7.4-10.4); MONOCYTES # (AUTO) 0.8 X10'3 (0-0.9); MONOCYTES % (AUTO) 9.3 % (2-12); NEUTROPHILS # (AUTO) 4.6 X10'3 (1.8-7.7); NEUTROPHILS % (AUTO) 55.8 % (42-75); PRE OP HEMOGLOBIN 13.5 g/dL (12.0-16.0); PRE OP PLATELET COUNT 285 X10'3 (140-440); RED BLOOD COUNT 5.13 X10'6 (4.20-5.60); RED CELL DISTRIBUTION WIDTH 17.3 % (11.5-14.5)
[2020-07-15 15:29] LABS: ALBUMIN 3.1 G/DL (3.4-5.0); ALBUMIN/GLOBULIN RATIO 0.8 (1.1-1.5); ALKALINE PHOSPHATASE 70 IU/L (46-116); BLOOD UREA NITROGEN 13 MG/DL (7-18); BUN/CREATININE RATIO 44.8 (6.6-38.0); CALCIUM 9.1 MG/DL (8.5-10.1); CHLORIDE 100 MMOL/L (99-107); CREATININE 0.29 MG/DL (0.40-0.90); PRE OP ALT 18 U/L (30-65); PRE OP ANION GAP 9 (8-16); PRE OP AST 15 U/L (10-37); PRE OP BILIRUB, TOTAL 0.4 MG/DL (0.0-1.0); PRE OP GLUCOSE 104 MG/DL (70-104); PRE OP SODIUM 138 MMOL/L (135-145); TOTAL CARBON DIOXIDE 29.2 MMOL/L (24-32); eGFR > 90 ML/MIN
[2020-07-15 15:32] LABS: PRE OP POTASSIUM 3.2 MMOL/L (3.4-5.1)
[2020-07-23] MEDS ORDERED: ringers solution, lacted 1,000 ML IV SCH (05:00)
[2020-07-23] MEDS ORDERED: vancomycin 1,500 MG in NS 300ml IV soln IV ONE (05:30)
[2020-07-23] MEDS ORDERED: famotidine 20mg tablet PO ONE (05:30)
[2020-07-23] MEDS ORDERED: cefazolin/dext.iso 2gm/50ml 50 ML IV ONE (06:00)
== END 2020-07-15 23:59 | disposition home or self-care (01) ==
LOC: PRE-OP 14:10 → EDSTATUS 07-23 07:30
PROVIDERS: ATTEND Orthopaedic Surgery
DX: Z01.812 Encounter for preprocedural laboratory examination (principal); T84.84XA Pain due to internal orthopedic prosthetic devices, implants and grafts, initial encounter; M25.511 Pain in right shoulder; M75.41 Impingement syndrome of right shoulder; Z20.828 Contact with and (suspected) exposure to other viral communicable diseases
CPT/HCPCS: 36415; 80053; 85025; 87635; 93005; J3370; J7040; J7120